=== PATIENT | female | born 1950 | race African-American/Black ===

== ENCOUNTER 2020-02-11 05:48 | Day surgery (SDC) | payer MEDICARE ==
--- NOTE | 2020-02-10 11:00 | Pre-op HX & Phy Repo 2 SIG ---
DATE OF ADMISSION: 02/11/2020 DATE OF SURGERY: 02/11/2020 PREOPERATIVE DIAGNOSIS: Full thickness macular hole, right eye. BRIEF NOTE: This is a first [facility] retinal surgery admission for this very nice 69-year-old lady who complained of poor vision centrally in the right eye for three months. On examination, she was found to have a full thickness macular hole and is admitted for repair. PAST OCULAR HISTORY: Remarkable for cataract surgery done in both eyes in 2008. She had a kidney transplant surgery in 2003 but is still requiring dialysis. PAST MEDICAL HISTORY: Remarkable for diabetes and kidney failure as well as arthritis. MEDICATIONS: She is on colchicine, prednisone, hydrocodone, acetaminophen, tramadol, and morphine as needed. ALLERGIES: She has no medication allergies. PHYSICAL EXAMINATION: Best vision at the admission was 24/100 in the right eye 20/30- in the left with pressures of 19. The anterior segments were quiet. Posterior chamber lenses were seen in either eye. Fundus examination of the right eye showed a blunted foveal reflex and full thickness macular hole. There was vitreous degeneration. The left fundus showed a complete vitreous detachment but the retina was all attached without central hole formation. ASSESSMENT: Stage IV macular hole, right eye. PLAN: The plan is to perform pars plana vitrectomy with ILM peeling and gas fluid exchange. The risks and benefits of surgery have been gone over with the patient including potential for infection, retinal detachment, hemorrhage, failure of the macular hole to close, and remote possibility of loss of the eye. The risk of anesthesia was discussed. The patient understands and consents to the surgery, which will be performed on tomorrow morning. Tushar Park M.D. DR: Wilbert JOB#: [id number] CC:
[~2020-02-11] VITALS: Ht 158.8 cm; Wt 65.0 kg
[2020-02-11] VITALS (12 sets, daily range): BP systolic 92–135; BP diastolic 48–82
[~2020-02-11 05:48] MED LIST: ARIMIDEX1 MG ORAL; BIOTIN1 M1 PO; Cyclopentolate 1% Opth Sol 2ml ONE; Flurbiprofen 0.03% Opth Sol 2.5ml ONE; OMEGA 3 1,0001 EACH PO; ONE-TABLET-DAI1 EACH ORAL; Phenylephrine 2.5% Op 2ml Soln ONE; Vigamox Opth Soln 3ml ONE
[2020-02-11] MEDS: Phenylephrine 2.5% Op 2ml Soln RIGHT EYE SCH ×2 (06:22→06:31)
[2020-02-11] MEDS: Cyclopentolate 1% Opth Sol 2ml RIGHT EYE SCH ×3 (06:23→06:41)
[2020-02-11] MEDS: Flurbiprofen 0.03% Opth Sol 2.5ml RIGHT EYE SCH ×3 (06:23→06:42)
[2020-02-11] MEDS: Vigamox Opth Soln 3ml RIGHT EYE SCH ×3 (06:23→06:42)
[2020-02-11] MEDS ORDERED: WARFARIN SODIUM5 MG ORAL (06:37)
[2020-02-11] MEDS ORDERED: prednisoLONE acetate 1% Opth Susp 1ml RIGHT EYE ONE (07:00)
[2020-02-11] MEDS ORDERED: fentaNYL 100 mcg/2 mL IV ONE (07:05)
[2020-02-11] MEDS ORDERED: Indocyanine Green 25mg Inj INJ ONE (07:15)
--- NOTE | 2020-02-11 07:17 | Anethesia Preoperative Eval ---
Anesthesia Pre-op PMH/ROS General Date of Evaluation: Feb 11, 2020 Time of Evaluation: 07:13 Anesthesiologist: Tracy ASA Score: ASA 3 Mallampati Score Class I : Soft palate, uvula, fauces, pillars visible Class II: Soft palate, uvula, fauces visible Class III: Soft palate, base of uvula visible Class IV: Only hard plate visible Mallampati Classification: Class II Surgeon: Vivian Diagnosis: R eye macular hole Surgical Procedure: R eye PPV Anesthesia History: none Family History: no anesthesia problems Allergies: Coded Allergies: No Known Allergies (Unverified , 02/09/20) Medications: see eMAR Patient NPO?: Yes Past Medical History Cardiovascular: Reports: HTN, arrhythmia; Denies: CAD, NV, valve dz, other Pulmonary: Denies: asthma, COPD, WANDA, other Gastrointestinal/Genitourinary: Reports: GERD, ESRD - on HD; Denies: CRI, other Neurologic/Psychiatric: Reports: depression/anxiety; Denies: dementia, CVA, TIA, other Endocrine: Reports: DM, steroids; Denies: hypothyroidism, other HEENT: Reports: cataract (L), cataract (R) - s/p Sx Hematology/Immune: Reports: anemia - of chronic d-s; Denies: DVT, bleeding disorder, other Musculoskeletal/Integumentary: Reports: OA; Denies: RA, DJD, DDD, edema, other PMH Narrative: as above PSxH Narrative: bilateral cataracts, kidney transplant, A-V shunt placement Anesthesia Pre-op Phys. Exam Physician Exam Last Vital Signs Date Time Temp Pulse Resp B/P (MAP) Pulse Ox O2 Delivery O2 Flow Rate FiO2 02/11/20 06:33 Room Air 02/11/20 06:26 96.3 70 18 126/70 99 Constitutional: NAD Neurologic: CN 2-12 intact Cardiovascular: RRR, no M/R/G Respiratory: CTA Gastrointestinal: S/NT/ND Airway Exam Mallampati Score: Class II MO: limited Neck: stiff ROM: limited Teeth: missing Dentures: no upper, no lower Anesthesia Pre-op A/P Labs Chemistry Test 02/11/20 06:14 02/11/20 06:18 POC Whole Blood Glucose Pending Potassium Level 4.4 MMOL/L (3.5-5.1) Risk Assessment & Plan Assessment: ASA 3 Plan: MAC with retrobulbar block Status Change Before Surgery: No Pre-Antibiotics Drug: none Brennen Molina MD Feb 11, 2020 07:17
[2020-02-11] MEDS ORDERED: Maxitrol Opth Oint 3.5gm ONE (07:24)
[2020-02-11] MEDS ORDERED: Kenalog-40 1ml Vial ONE (07:24)
[2020-02-11] MEDS ORDERED: EPINEPHrine 1mg/1ml Amp ONE (07:24)
[2020-02-11] MEDS ORDERED: Kenalog-10 5ml Inj ONE (07:24)
[2020-02-11] MEDS ORDERED: Lidocaine 2% MPF 5ml Vial INJ ONE (07:24)
[2020-02-11] MEDS ORDERED: prednisoLONE acetate 1% Opth Susp 1ml ONE (07:24)
[2020-02-11] MEDS ORDERED: Povidone-Iodine 5% opth solution ONE (07:25)
[2020-02-11] MEDS ORDERED: Bupivacaine 0.75% 30ml vial INJ ONE (07:25)
[2020-02-11] MEDS ORDERED: Tetracaine 0.5% Opth 4ml Soln ONE (07:25)
[2020-02-11] MEDS ORDERED: BSS 500ml btl ONE (07:25)
[2020-02-11] MEDS ORDERED: BSS 15ml BTL ONE (07:25)
[2020-02-11] MEDS ORDERED: Sodium Hyaluronate 10 mg/ml 0.85ml ONE (07:26)
[2020-02-11] MEDS ORDERED: Hyaluronidase 150 units/ml vial ONE (07:26)
[2020-02-11] MEDS ORDERED: NS Irrig 1000ml ONE (07:30)
[2020-02-11] MEDS ORDERED: Sterile Water Irrig 1000ml IRRIG ONE (07:30)
[2020-02-11] MEDS ORDERED: NS 275ml ONE (07:30)
--- NOTE | 2020-02-11 07:35 | Pre-Procedure Note/Attestation ---
Pre-Procedure Note/Attestation Complete Prior to Procedure Planned Procedure: right Procedure Narrative: PPV, ICG assisted membrane peel, gas-fluid exchange RIGHT eye Indications for Procedure Pre-Operative Diagnosis: Stage IV macular hole OD Attestation I attest that I discussed the nature of the procedure; its benefits; risks and complications; and alternatives (and the risks and benefits of such alternatives ), prior to the procedure, with the patient (or the patient's legal sales training representative). I attest that, if there was a reasonable possibility of needing a blood transfusion, the patient (or the patient's legal sales training representative) was given the [facility] standardized written summary, pursuant to the Cliff [place] Blood Safety Act ([place] Health and Safety Code # 1645, as amended). I attest that I re-evaluated the patient just prior to the surgery and that there has been no change in the patient's H&P, except as documented below: Tushar Park MD Feb 11, 2020 07:35
[2020-02-11] MEDS ORDERED: fentaNYL 100 mcg/2 mL IV PRN (08:15)
--- NOTE | 2020-02-11 09:07 | Brief Operative Note ---
Immediate Post Operative Note Operative Note Chief Complaint: Blurred central vision Right eye Pre-op Diagnosis: Stage IV macular hole OD Procedure: PPV, ICG assisted membrane peel, Endolaser 242 spots, Gas-Fluid exchange (SF-6) 24% OD Post-op Diagnosis: Stage IV macular hole OD with inferior lattice degeneration Findings: consistent w/pre-op dx studies Surgeon: Vivian Aromatherapist: none Anesthesiologist: Tracy Anesthesia: general Specimen: none Complications: none Condition: stable Fluids: Per anesthesia Estimated Blood Loss: none Drains: none Implant(s) used?: No Tushar Park MD Feb 11, 2020 09:07
--- NOTE | 2020-02-11 09:12 | Immediate Post-Op Evaluation ---
Immediate Post-Op Evalulation Immediate Post-Op Evalulation Procedure: R eye PPV membrane peel, laser treatment Date of Evaluation: Feb 11, 2020 Time of Evaluation: 09:11 IV Fluids: 250 Blood Products: none Estimated Blood Loss: min Urinary Output: none Blood Pressure Systolic: 117 Blood Pressure Diastolic: 72 Pulse Rate: 86 Respiratory Rate: 20 O2 Sat by Pulse Oximetry: 99 Temperature (Fahrenheit): 97.6 Pain Score (1-10): 1 Nausea: No Vomiting: No Complications none Patient Status: reacts, patent, none Hydration Status: adequate Brennen Molina MD Feb 11, 2020 09:12
--- NOTE | 2020-02-11 10:14 | Operative Note - Dictated ---
DATE OF OPERATION: 02/11/2020 PREOPERATIVE DIAGNOSIS: Stage IV macular hole, right eye. POSTOPERATIVE DIAGNOSIS: Stage IV macular hole, right eye with inferior lattice degeneration. SURGEON: Tushar Park MD. NEWS PRODUCER: None. ANESTHESIA: LMA general. ANESTHESIOLOGIST: Brennen Molina MD. JUSTIFICATION FOR SURGERY: This is a 69-year-old lady developed poor vision centrally in the right eye and was found to have a stage IV macular hole. BRIEF NOTE: The patient was brought to the operative room, placed on OR table in supine position. After a time-out was performed and agreed upon by the staff, general LMA anesthesia was induced by Dr. Molina. A retrobulbar block was then given to limit postoperative pain and need for intraoperative anesthetic. She was then prepped and draped in normal manner. A lid speculum inserted into the right eye. Using a 23-gauge trocar system, cannulas were placed in all except infranasal quadrant. Infusion secured inferotemporally. Vitrectomy was begun posterior to the lens implant. A central core vitrectomy was done peripherally leaving a very small vitreous skirt. A small patch of lattice degeneration was noted inferiorly without definite hole. It was decided to laser this area. Using a endolaser probe, at power of 350 milliwatts, a total of 242 lesions were applied in a broad band inferiorly surrounding the lattice. Additional scleral depression showed no peripheral problems. The posterior viewing lens was inserted and ICG stain, 3 drops were applied to the posterior pole and left for 45 seconds. These were removed. Using ILM forceps, the internal limiting lamina with overlying epiretinal membrane was engaged superior and slightly temporal to the macula. This area was gently peeled with the aid of [employer] business analyst intern to roughly a diameter of 3 disc diameters. No problems were encountered. Small adhesions holding the macular hole open were broken with the [employer] business analyst intern resulting in a diminution of the diameter of the hole by about 50%. The vitrector was used to remove the residual particles of membrane and ILM. An air-fluid exchange was then performed followed by a gas-gas exchange and 24% mixture of SF6. The eye was left normotensive. The cannula was removed and the each sclerotomy closed with 8-0 Vicryl suture with knots buried. Subconjunctival Decadron and gentamicin were injected inferiorly and topical moxifloxacin drops, atropine drops, prednisolone drops, and Maxitrol ointment were instilled. The eye was patched and shielded. The patient was taken to recovery in excellent condition to be placed in a face-down position. There were no complications. Tushar Park M.D. DR: Wilbert JOB#: [id number] CC: Tushar Park M.D.; Fax#: [phone]
--- NOTE | 2020-02-11 10:26 | 48 Hour Post Anesthesia Eval ---
Post Anesthesia Evaluation Procedure: R eye PPV membrane peel, laser treatment Date of Evaluation: Feb 11, 2020 Time of Evaluation: 10:24 Blood Pressure Systolic: 104 0: 56 Pulse Rate: 82 Respiratory Rate: 22 Temperature (Fahrenheit): 97.6 O2 Sat by Pulse Oximetry: 98 Airway: patent Nausea: No Vomiting: No Pain Intensity: 1 Hydration Status: adequate Cardiopulmonary Status: stable Mental Status/LOC: patient returned to baseline Follow-up Care/Observations: n/a Post-Anesthesia Complications: none Follow-up care needed: ready to discharge Brennen Molina MD Feb 11, 2020 10:26
== END 2020-02-11 11:15 | disposition home or self-care (01) ==
LOC: SUR 05:48
DX: H35.341 Macular cyst, hole, or pseudohole, right eye (principal); K21.9 Gastro-esophageal reflux disease without esophagitis; I12.0 Hypertensive chronic kidney disease with stage 5 chronic kidney disease or end stage renal disease; E11.22 Type 2 diabetes mellitus with diabetic chronic kidney disease; N18.6 End stage renal disease; M19.90 Unspecified osteoarthritis, unspecified site; Z99.2 Dependence on renal dialysis; Z94.0 Kidney transplant status; Z79.899 Other long term (current) drug therapy; H43.811 Vitreous degeneration, right eye
CPT/HCPCS: 36415; 67039; 67042; 82962; 84132; 94003; J0171; J1100; J2704; J3010; J3470; J3490; J7030; J7050; U0002; 94150